=== PATIENT | female | born 1960 | race Caucasian/White ===

== ENCOUNTER 2016-12-20 15:27 | Emergency (ER) | payer BC ==
[~2016-12-20] VITALS: Ht 177.8 cm; Wt 77.1 kg
[2016-12-20 15:27] VITALS: BP_SYST 152
[2016-12-20] MEDS ORDERED: ALPRAZolam 0.25 MG TABLET PO ONE (16:45)
[2016-12-20 17:02] LABS: BILIRUBIN,URINE NEGATIVE (NEGATIVE); BLOOD, URINE NEGATIVE (NEGATIVE); CLARITY/URINE CLEAR (CLEAR); COLOR,URINE YELLOW (YELLOW); GLUCOSE,URINE NEGATIVE (NEGATIVE); KETONES,URINE 1+ (NEGATIVE); LEUKOCYTE ESTERASE ,URINE NEGATIVE (NEGATIVE); NITRITE, URINE NEGATIVE (NEGATIVE); PH,URINE 6.5 (5.0-8.0); PROTEIN URINE NEGATIVE (NEGATIVE); UROBILINOGEN,URINE 0.2 (0.2-1.0)
[2016-12-20 17:04] LABS: BASOPHILS % (AUTO) 0.3 % (0.0-2.0); EOSINOPHILS # (AUTO) 0.1 K/uL (0.0-0.4); HEMATOCRIT 37.3 % (36-48); HEMOGLOBIN 12.3 g/dL (12.0-16.0); LYMPHOCYTES # (AUTO) 1.3 K/uL (1.0-5.5); LYMPHOCYTES % (AUTO) 14.9 % (20.5-51.5); MEAN CORPUSCULAR HEMOGLOBIN 27 pg (27-31); MEAN CORPUSCULAR HGB CONC 33 % (32-36); MEAN CORPUSCULAR VOLUME 83 fL (79.0-98.0); MONOCYTES # (AUTO) 0.5 K/uL (0.0-1.0); MONOCYTES % (AUTO) 5.2 % (1.7-9.3); NEUTROPHILS # (AUTO) 6.9 K/uL (1.8-7.7); NEUTROPHILS % (AUTO) 78.6 % (40.0-70.0); PLATELET COUNT (AUTO) 223 K/uL (130-430); RED BLOOD CELL COUNT(AUTO) 4.52 MIL/uL (4.2-6.2); RED CELL DISTRIBUTION WIDTH 14.1 % (9.0-15.0); WHITE BLOOD COUNT (AUTO) 8.8 K/uL (4.8-10.8)
[2016-12-20 17:17] LABS: CALCIUM 8.8 mg/dL (8.4-11.0); CREATININE 0.85 mg/dL (0.55-1.30); POTASSIUM 4.1 mmol/L (3.5-5.1); PROTHROMBIN TIME 10.7 SECS (9.5-12.5)
[2016-12-20 17:23] LABS: ALBUMIN 3.9 g/dL (3.4-4.8); TOTAL BILIRUBIN 0.7 mg/dL (0.0-1.0); TOTAL PROTEIN, SERUM 7.3 g/dL (6.4-8.3)
[2016-12-20 17:52] VITALS: BP_SYST 148
== END 2016-12-20 17:52 | disposition home or self-care (01) ==
LOC: SED 15:27
DX: F41.9 Anxiety disorder, unspecified (principal); Z88.6 Allergy status to analgesic agent; Z88.0 Allergy status to penicillin; Z88.8 Allergy status to other drugs, medicaments and biological substances
CPT/HCPCS: 36415; 71010; 80053; 81003; 84484; 85025; 85610-TC; 93005; 99285

== ENCOUNTER 2017-08-13 02:30 | Emergency (ER) | payer BC ==
[~2017-08-13] VITALS: Ht 180.3 cm; Wt 78.0 kg
[2017-08-13 02:35] VITALS: BP_SYST 148
[2017-08-13] MEDS ORDERED: LORazepam 2 MG/ML VIAL IM ONE (03:00)
[2017-08-13] MEDS ORDERED: LORazepam 2 MG/ML VIAL (FOR ER USE) ONE (03:00)
[2017-08-13] MEDS ORDERED: ONDANSETRON 4 MG ODT TAB PO ONE (03:15)
[2017-08-13] MEDS ORDERED: fentaNYL CITRATE/PF 100 MCG/2 ML AMP IM ONE (04:45)
[2017-08-13] MEDS ORDERED: DEXAMETHASONE SOD PHOSPHATE 10 MG/ML VIAL IM ONE (04:45)
[2017-08-13 05:20] VITALS: BP_SYST 122
== END 2017-08-13 05:20 | disposition home or self-care (01) ==
LOC: SED 02:30
DX: M54.12 Radiculopathy, cervical region (principal); R51 Headache; R10.32 Left lower quadrant pain; R11.0 Nausea; F41.9 Anxiety disorder, unspecified; Z88.0 Allergy status to penicillin; Z88.6 Allergy status to analgesic agent; Z88.8 Allergy status to other drugs, medicaments and biological substances
CPT/HCPCS: 70450; 72125; 93005; 96372; 99284; J1100; J2060; J3010; Q0162

== ENCOUNTER 2023-01-01 04:06 | Emergency (ER) | payer BC ==
[~2023-01-01] VITALS: Ht 180.3 cm; Wt 77.1 kg
[2023-01-01 04:25] VITALS: BP_SYST 127
--- NOTE | 2023-01-01 04:30 | NUR ---
FIRST CONTACT WITH PT. ASSESSMENT COMPLETED. AWAITING EVAL AND ORDERS.
[2023-01-01] MEDS ORDERED: MORPHINE 4 MG INJ. 4 MG/ML VIAL IVP ONE (04:45)
[2023-01-01 05:03] LABS: BASOPHILS # (AUTO) 0.1 K/uL (0.0-0.2); BASOPHILS % (AUTO) 1.2 % (0.0-2.0); EOSINOPHILS # (AUTO) 0.2 K/uL (0.0-0.4); EOSINOPHILS % (AUTO) 4.6 % (0.0-4.0); HEMATOCRIT 40.5 % (36-48); HEMOGLOBIN 13.4 g/dL (12.0-16.0); LYMPHOCYTES # (AUTO) 2.6 K/uL (1.0-5.5); LYMPHOCYTES % (AUTO) 48.3 % (20.5-51.5); MEAN CORPUSCULAR HEMOGLOBIN 29 pg (27-31); MEAN CORPUSCULAR HGB CONC 33 % (32-36); MEAN CORPUSCULAR VOLUME 88 fL (79.0-98.0); MONOCYTES # (AUTO) 0.4 K/uL (0.0-1.0); MONOCYTES % (AUTO) 7.1 % (1.7-9.3); NEUTROPHILS # (AUTO) 2.1 K/uL (1.8-7.7); NEUTROPHILS % (AUTO) 38.8 % (40.0-70.0); PLATELET COUNT (AUTO) 205 K/uL (130-430); RED BLOOD CELL COUNT(AUTO) 4.59 MIL/uL (4.2-6.2); RED CELL DISTRIBUTION WIDTH 13.3 % (9.0-15.0); WHITE BLOOD COUNT (AUTO) 5.3 K/uL (4.8-10.8)
[2023-01-01 05:17] LABS: ANION GAP 7 (5-15); CALCIUM 8.3 mg/dL (8.4-11.0); CHLORIDE 105 mmol/L (98-107); CREATININE 0.79 mg/dL (0.55-1.30); GFR AFRICAN AMERICAN 95 mL/min (>90); GLUCOSE 91 mg/dL (70-99); UREA NITROGEN, BLOOD 11 mg/dL (8-21)
[2023-01-01 05:24] LABS: ALANINE AMINOTRANSFERASE 15 U/L (12-78); ALBUMIN 3.8 g/dL (3.4-4.8); ASPARTATE AMINOTRANSFERASE 18 U/L (10-37); LIPASE 74 U/L (73-393); TOTAL BILIRUBIN 0.6 mg/dL (0.0-1.0)
[2023-01-01] MEDS ORDERED: iohexoL 350 mgI/mL, 100 ML INFUS..BTL IV ONE (05:30)
[2023-01-01] MEDS ORDERED: HYDR-3917 PO (06:25)
[2023-01-01] MEDS ORDERED: KETOROLAC TROMETHAMINE 15 MG VIAL IVP ONE (06:30)
[2023-01-01] MEDS ORDERED: LIDOCAINE PATCH 5% 1 EA TP SCH (06:30)
--- NOTE | 2023-01-01 06:30 | NUR ---
MD AT BEDSIDE TO DISCUSS FINDINGS AND DISCHARGE INSTRUCTIONS.
[2023-01-01] MEDS ORDERED: LIDOCAINE PATCH 5% 1 EA TP ONE (06:44)
[2023-01-01] MEDS ORDERED: ONDANSETRON 4 MG ODT TAB ONE (07:09)
[2023-01-01] MEDS ORDERED: ONDANSETRON 4 MG ODT TAB PO ONE (07:15)
--- NOTE | 2023-01-01 07:26 | NUR ---
Patient given written and verbal discharge instructions and verbalizes understanding. ER MD KONG discussed with patient the results and treatment provided. Patient in stable condition. ID arm band removed. IV catheter removed intact and dressing applied, no active bleeding. Rx of NORCO given. Patient educated on pain management and to follow up with PMD. Pain Scale . Opportunity for questions provided and answered. Medication side effect fact sheet provided.
--- NOTE | 2023-01-01 07:37 | NUR ---
Note undone in EDM - 01/01/23 at 0738 by [facility] Patient given written and verbal discharge instructions and verbalizes understanding. ER discussed with patient the results and treatment provided. Patient in stable condition. ID arm band removed. Rx of AUGMENTIN, JASON ALLERGY given. Patient educated on pain management and to follow up with PMD. Pain Scale 0/10. Opportunity for questions provided and answered. Medication side effect fact sheet provided.
== END 2023-01-01 07:26 | disposition home or self-care (01) ==
LOC: SED 04:06
DX: M54.6 Pain in thoracic spine (principal); R07.9 Chest pain, unspecified; Z88.0 Allergy status to penicillin; Z88.6 Allergy status to analgesic agent; Z79.899 Other long term (current) drug therapy
CPT/HCPCS: 99285; 96374; 71275; 71045; 96375; 80053; 83690; 85025; 84484; 36415; 93005; 76376; Q0162; Q9967; J1885; J2270